=== PATIENT | female | born 1965 | race Caucasian/White ===

== ENCOUNTER 2017-10-10 15:13 | Emergency (ER) | payer SELFPAY ==
[~2017-10-10] VITALS: Ht 170.2 cm; Wt 90.7 kg
[2017-10-10] MEDS ORDERED: IBUPROFEN 600 MG TAB PO STA (15:53)
[2017-10-10] MEDS ORDERED: NEOMYCIN/POLYMYX/BACITR OINT 0.9 GM PKT TOP ONE (16:00)
== END 2017-10-10 17:30 | disposition home or self-care (01) ==
LOC: ER 15:13
DX: R21 Rash and other nonspecific skin eruption (principal); L23.9 Allergic contact dermatitis, unspecified cause
CPT/HCPCS: 99283